=== PATIENT | male | born 2005 | race Hispanic/Latino ===

== ENCOUNTER 2025-10-03 16:45 | Emergency (ER) | payer OTHER ==
[~2025-10-03] VITALS: Ht 165.1 cm; Wt 67.2 kg
[2025-10-03] MEDS: ACETAMINOPHEN 325 MG TAB PO ONE (18:57)
[2025-10-03] MEDS: IBUPROFEN 600 MG TAB PO ONE (20:18)
[2025-10-03 21:15] VITALS: BP 109/59; TEMP 96.8; O2SAT 96
[2025-10-03] MEDS ORDERED: IBUP600T42 PO (21:15)
== END 2025-10-03 21:23 | disposition home or self-care (01) ==
LOC: M ED 16:45
DX: R51.9 Headache, unspecified (principal)